=== PATIENT | male | born 1960 | race Caucasian/White ===

== ENCOUNTER 2020-03-28 19:50 | Emergency (ER) | payer MEDICAID ==
[~2020-03-28] VITALS: Ht 167.6 cm; Wt 89.8 kg
[2020-03-28 20:18] VITALS: BP_SYST 165
--- NOTE | 2020-03-28 20:20 | NUR ---
Patient triaged and placed in waiting room. VSS and patient appears in no acute distress at this time. Accompanied by self, awaiting available bed, and MD notified of need for MSE.
--- NOTE | 2020-03-28 20:21 | NUR ---
Pt brought by self, A&Ox4, pt presents to ER with LAC on R thumb after grabbing a steal cable, skin bleeding controlled, skin pink and warm, cap refill <3, VSS.
--- NOTE | 2020-03-28 20:22 | NUR ---
Dr Alarcon evaluating patient in the tent
[2020-03-28] MEDS ORDERED: LIDOCAINE 2%, 20 ML MDV ONE (20:41)
[2020-03-28] MEDS ORDERED: CEPH-568 PO (22:45)
[2020-03-28 23:30] VITALS: BP_SYST 165
--- NOTE | 2020-03-28 23:30 | NUR ---
Patient given written and verbal discharge instructions and verbalizes understanding. ER MD NIÑO discussed with patient the results and treatment provided. Patient in stable condition. ID arm band removed. Rx of KEFLEX given. Patient educated on pain management and to follow up with PMD. Pain Scale 0/10. Opportunity for questions provided and answered. Medication side effect fact sheet provided.
== END 2020-03-28 23:30 | disposition home or self-care (01) ==
LOC: SED 19:50
DX: S61.011A Laceration without foreign body of right thumb without damage to nail, initial encounter (principal); W26.8XXA Contact with other sharp object(s), not elsewhere classified, initial encounter; Y93.89 Activity, other specified; Y92.89 Other specified places as the place of occurrence of the external cause; Y99.8 Other external cause status
CPT/HCPCS: 12001; 73130; 99283; J2001